=== PATIENT | female | born 1950 | race Hispanic/Latino ===

== ENCOUNTER 2019-12-22 06:21 | Day surgery (SDC) | payer MEDICARE, OTHER ==
[2019-12-22] MEDS ORDERED: ONDANSETRON 4 MG/2 ML INJ IV PRN (07:12)
--- NOTE | 2019-12-22 07:13 | Anesthesia Day of Surgery ---
Anesthesia Day of Surgery - Day of Surgery Patient Examined: Yes Patient H&P Reviewed: Yes Patient is NPO: Yes
--- NOTE | 2019-12-22 07:17 | Anesthesia Consultation ---
Anesthesia Consult and Med Hx Date of service: 12/22/19 - Airway Anesthetic Teeth Evaluation: Good, Caps ROM Head & Neck: Adequate Mental/Hyoid Distance: Adequate Mallampati Class: Class IV Intubation Access Assessment: Possibly Difficult - Pre-Operative Health Status ASA Pre-Surgery Classification: ASA2 Proposed Anesthetic Plan: General - Pulmonary Hx Smoking: Yes (1/2 PPD) COPD: Yes (DAILY INHALERS) - Cardiovascular System Hx Hypertension: No Hx Peripheral Vascular Disease: Yes (2013 CLOTS IN LEGS STENT PUT IN.) - Central Nervous System Hx Neuromuscular Disorder: Yes (Fibromyalgia) Hx Back Pain: Yes (NECK AND LOWER BACK PAIN) Hx Psychiatric Problems: Yes (Anxiety) - Hematic Hx Anemia: No - Other Systems Hx Alcohol Use: No Hx Substance Use: No Hx Cancer: No
[2019-12-22] MEDS ORDERED: propofoL 200 MG/20 ML VIAL IV ONE (07:31)
[2019-12-22] MEDS ORDERED: LIDOCAINE MPF (2%) 20 MG/1 ML VIAL 5 ML ONE (07:31)
[2019-12-22] MEDS ORDERED: fentaNYL 100 MCG/2 ML INJ ONE (07:31)
[2019-12-22] MEDS ORDERED: LACTATED RINGERS 1,000 ML IV SCH (08:00)
[2019-12-22] MEDS ORDERED: MIDAZOLAM 2 MG/2 ML INJ IV NR (08:00)
[2019-12-22] MEDS ORDERED: ceFAZolin/STERILE WATER 2 GM/20 ML SYRINGE IV NR (09:00)
[2019-12-22] MEDS ORDERED: WATER FOR IRRIG STERILE 2000 ML IR ONE (10:00)
[2019-12-22] MEDS: fentaNYL 100 MCG/2 ML INJ IV PRN ×2 (10:15→10:25)
--- NOTE | 2019-12-22 10:27 | Fluoroscopy Report ---
FLUOROSCOPY RETROGRADE UROGRAPHY HISTORY: Hematuria FINDINGS: Fluoroscopy was provided by radiology during retrograde urography by the urologist. [There is normal filling of both renal collecting systems. No filling defect or abnormal dilatation is ident ified.] IMPRESSION: [Unremarkable lateral retrograde pyelograms] Fluoroscopy time: 0.3 minutes Fluoroscopic images: 5 Signer Name: Trae Lynch Jr, MD Signed: 12/22/2019 10:22 AM Workstation Name: [id number]
[2019-12-22] MEDS ORDERED: SODIUM CHLORIDE FOR INHALATION NEBU 3 ML ONE (11:14)
[2019-12-22] MEDS ORDERED: ALBUTEROL 2.5 MG/3 ML NEBU IH ONE ×2 (11:14→11:19)
[2019-12-22] MEDS ORDERED: ePHEDrine SULFATE 50 MG/1 ML INJ ONE (11:15)
[2019-12-22] MEDS ORDERED: ePHEDrine SULFATE 50 MG/1 ML INJ IV ONE (11:28)
--- NOTE | 2019-12-22 11:29 | Discharge Summary ---
Short Stay Discharge Plan Activity: other (no straining ) Weight Bearing Status: Full Weight Bearing Diet: low fat, low cholesterol, low salt Special Instructions: other (inc fluids ) Durable Medical Equipment Needed Upon Discharge: other (home with cath ) Follow up with: RENA SPEAR MD [Primary Care Provider] - 7 Days BAYRON PANDEY MD [Staff Physician] - 7 Days
--- NOTE | 2019-12-22 11:29 | Post Operative Note ---
Date of procedure: 12/22/19 Pre-op diagnosis: tcc heme Post-op diagnosis: same Findings: bladder tumor r uo Procedure: cysto turbt Anesthesia: GETA Surgeon: BAYRON PANDEY Estimated blood loss: none Pathology: list (bladder) Specimen disposition: to lab Condition: stable Disposition: PACU
[2019-12-22 11:57] VITALS: BP 110/55
--- NOTE | 2019-12-22 13:00 | Post Anesthesia Evaluation ---
- Post Anesthesia Evaluation Patient Participated: Yes Airway Patent: Yes Stable Respiratory Function: Yes Nausea/Vomiting: No Temp > 96.8F: Yes Pain Manageable: Yes Adequeate Hydration: Yes Anesthesia Complications: No Block Receding Appropriately: Not Applicable Patient on Ventilator: No
--- NOTE | 2019-12-22 15:35 | Operative Report ---
PREOPERATIVE DIAGNOSIS: Gross hematuria. POSTOPERATIVE DIAGNOSES: Gross hematuria with evidence of bladder cancer over the right orifice. PROCEDURE: Cystoscopy, retrograde, transurethral resection of bladder tumor. SURGEON: Dr. Amin. ANESTHESIA: General. FINDINGS: This is a woman with hematuria, has a tumor 1.5-2 cm over the right orifice, now presents for treatment. DESCRIPTION OF PROCEDURE: The patient was brought to the operating room and placed on the operating table. Following induction of anesthesia, placed in lithotomy position, prepped and draped in usual sterile fashion. Cystourethroscopy revealed a tumor. It was broad-based. After the retrograde were done, which showed no persistent filling defect, we were able to resect it without resecting the orifice. The patient tolerated the procedure well. We resected down to muscle, which we saw cystoscopically. The patient tolerated the procedure well. No significant complication. Area was cauterized well. Urine was clear, brought to recovery room, family notified, and in stable condition. JOB# [id number] REJI/FAISAL
== END 2019-12-22 12:40 | disposition home or self-care (01) ==
LOC: OR 06:21
PROVIDERS: ATTEND Urology
DX: R31.0 Gross hematuria (principal); C67.9 Malignant neoplasm of bladder, unspecified; F17.210 Nicotine dependence, cigarettes, uncomplicated; M79.7 Fibromyalgia; J44.9 Chronic obstructive pulmonary disease, unspecified; K21.9 Gastro-esophageal reflux disease without esophagitis; E78.00 Pure hypercholesterolemia, unspecified; I73.9 Peripheral vascular disease, unspecified; M19.90 Unspecified osteoarthritis, unspecified site; F41.9 Anxiety disorder, unspecified; Z98.890 Other specified postprocedural states; Z79.899 Other long term (current) drug therapy; Z79.82 Long term (current) use of aspirin; Z98.41 Cataract extraction status, right eye; Z98.42 Cataract extraction status, left eye; Z90.49 Acquired absence of other specified parts of digestive tract; Z90.710 Acquired absence of both cervix and uterus; Z90.721 Acquired absence of ovaries, unilateral; Z98.891 History of uterine scar from previous surgery
CPT/HCPCS: 52234; 74420; 88112; 88305; 88341; 88342; A4217; C1758; C1769; J0690; J2250; J2704; J3010; J7120; Q9967; 88307

== ENCOUNTER 2020-03-31 13:24 | Day surgery (SDC) | payer MEDICARE, OTHER ==
[~2020-03-31 13:24] MED LIST: LACTATED RINGERS 1,000 ML IV SCH
--- NOTE | 2020-03-31 14:20 | Anesthesia Consultation ---
Anesthesia Consult and Med Hx Date of service: 03/31/20 - Airway Anesthetic Teeth Evaluation: Good (several missing teeth; none loose) ROM Head & Neck: Adequate Mental/Hyoid Distance: Adequate Mallampati Class: Class II Intubation Access Assessment: Probably Good - Pulmonary Exam CTA: Yes - Cardiac Exam Cardiac Exam: RRR - Pre-Operative Health Status ASA Pre-Surgery Classification: ASA3 Proposed Anesthetic Plan: General - Pulmonary Hx Smoking: Yes (1/2 PPD) Hx Respiratory Symptoms: No COPD: Yes (used maintenance inhaler today) Hx Sleep Apnea: No (MAJOR PRE SCREEN LOW RISK) - Cardiovascular System Hx Hypertension: No Hx Heart Attack/AMI: No Hx Percutaneous Transluminal Coronary Angioplasty (PTCA): No Hx Cardia Arrhythmia: No Hx Peripheral Vascular Disease: Yes (w/ stents; off ASA x1 months. No other anticogulants.) - Central Nervous System Hx Neuromuscular Disorder: No (Fibromyalgia) CVA: No Hx Back Pain: Yes (NECK AND LOWER BACK PAIN) Hx Psychiatric Problems: Yes (anxiety/depression) - Gastrointestinal Hx Gastroesophageal Reflux Disease: No - Endocrine Hx Renal Disease: No Hx Liver Disease: No Hx Insulin Dependent Diabetes: No Hx Non-Insulin Dependent Diabetes: No Hx Thyroid Disease: No - Other Systems Hx Obesity: No - Additional Comments Anesthesia Medical History Comments: No hx anesthetic complications.
[2020-03-31] MEDS ORDERED: fentaNYL 100 MCG/2 ML INJ IV PRN (14:21)
--- NOTE | 2020-03-31 14:21 | Anesthesia Day of Surgery ---
Anesthesia Day of Surgery - Day of Surgery Patient Examined: Yes Patient H&P Reviewed: Yes Patient is NPO: Yes
[2020-03-31] MEDS ORDERED: ONDANSETRON 4 MG/2 ML INJ ONE (14:35)
[2020-03-31] MEDS ORDERED: fentaNYL 100 MCG/2 ML INJ ONE (14:35)
[2020-03-31] MEDS ORDERED: LIDOCAINE MPF (2%) 20 MG/1 ML VIAL 5 ML ONE (14:35)
[2020-03-31] MEDS ORDERED: propofoL 200 MG/20 ML VIAL IV ONE (14:35)
--- NOTE | 2020-03-31 14:57 | Post Operative Note ---
Date of procedure: 03/31/20 Pre-op diagnosis: bladder cancer Post-op diagnosis: same Findings: scar Procedure: cysto biopsies Anesthesia: GETA Surgeon: BAYRON PANDEY Estimated blood loss: minimal Pathology: list (bladder) Specimen disposition: to lab Condition: stable Disposition: PACU
--- NOTE | 2020-03-31 14:58 | Discharge Summary ---
Short Stay Discharge Plan Activity: other (no straining ) Weight Bearing Status: Full Weight Bearing Diet: low fat, low cholesterol, low salt Special Instructions: other (inc fluids ) Follow up with: RENA SPEAR MD [Primary Care Provider] - 7 Days BAYRON PANDEY MD [Staff Physician] - 7 Days
[2020-03-31] MEDS ORDERED: WATER FOR IRRIG STERILE 2000 ML IR ONE (15:00)
[2020-03-31] MEDS ORDERED: dexAMETHasone 20 MG/5 ML VIAL ONE (15:27)
[2020-03-31 16:02] VITALS: BP 136/64
--- NOTE | 2020-03-31 16:06 | Operative Report ---
PREOPERATIVE DIAGNOSIS: Bladder cancer. POSTOPERATIVE DIAGNOSIS: Bladder cancer. PROCEDURE: Followup cystoscopy, post-BCG therapy. SURGEON: Dr. Amin. ANESTHESIA: General. FINDINGS: This is a woman with history of high-grade tumor now presents for followup cystoscopy. DESCRIPTION OF PROCEDURE: The patient was brought to the operating room and placed on the operating table. Following induction of anesthesia, placed in lithotomy position, prepped and draped in usual sterile fashion. The old tumor site was just scarred. There were no recurrent papillary tumors. Biopsy right lateral wall by the scar, posterior wall, left side lateral wall carried out. The patient tolerated the procedure well. Area was cauterized. Macdonald will be left for 3-4 days, was brought to recovery in stable condition. JOB# [id number] REJI/FAISAL
--- NOTE | 2020-03-31 16:34 | XRay Report ---
INTRAOPERATIVE FLUOROSCOPY: ABDOMEN INDICATION / CLINICAL INFORMATION: Bladder cancer. TECHNIQUE: Intraoperative spot images were obtained during the procedure. FINDINGS: Hosiery Pairer image was obtained of the abdomen. See operative/procedure note by performing physician for full details. Fluoroscopy Time: 2 seconds. Fluoroscopy Images: 1. Signer Name: Jesse Gonzalez MD Signed: 03/31/2020 4:29 PM Workstation Name: [id number]
--- NOTE | 2020-03-31 16:55 | Post Anesthesia Evaluation ---
- Post Anesthesia Evaluation Patient Participated: Yes Airway Patent: Yes Stable Respiratory Function: Yes Nausea/Vomiting: No Temp > 96.8F: Yes Pain Manageable: Yes Adequeate Hydration: Yes Anesthesia Complications: No
== END 2020-03-31 13:25 | disposition home or self-care (01) ==
LOC: OR 13:24
PROVIDERS: ATTEND Urology
DX: C67.9 Malignant neoplasm of bladder, unspecified (principal); Z11.59 Encounter for screening for other viral diseases; F17.210 Nicotine dependence, cigarettes, uncomplicated; E78.00 Pure hypercholesterolemia, unspecified; N30.80 Other cystitis without hematuria; I73.9 Peripheral vascular disease, unspecified; J44.9 Chronic obstructive pulmonary disease, unspecified; M19.90 Unspecified osteoarthritis, unspecified site; M79.7 Fibromyalgia; F32.9 Major depressive disorder, single episode, unspecified; F41.9 Anxiety disorder, unspecified; K21.9 Gastro-esophageal reflux disease without esophagitis; Z79.899 Other long term (current) drug therapy; Z79.82 Long term (current) use of aspirin; Z98.41 Cataract extraction status, right eye; Z98.42 Cataract extraction status, left eye; Z90.49 Acquired absence of other specified parts of digestive tract; Z90.710 Acquired absence of both cervix and uterus; Z98.891 History of uterine scar from previous surgery; Z98.890 Other specified postprocedural states; Z90.721 Acquired absence of ovaries, unilateral; Z87.440 Personal history of urinary (tract) infections
CPT/HCPCS: 52204; 74018; 88112; 88305; A4217; C1758; J1100; J2405; J2704; J3010; J7120; Q9967; U0003